=== PATIENT | male | born 1935 | race Caucasian/White ===

== ENCOUNTER → 2018-04-15 | Outpatient (CLI) | payer MEDICARE ==
[~2018-04-15] MED LIST: AMLO10TA6 PO; ASPI-1181 PO; CENTRUM PO; CLOP75TA14 PO; FENO134C PO; HYDR-2132 PO; LEVO200T5 PO; LOSA100T2 PO; LOVA40TA2 PO; METO100T7 PO; SUPER B COMPLEX PO; TRAM50TA4 PO
== END | disposition home or self-care (01) ==
LOC: CANPRECLI → SHCH 08:59
PROVIDERS: ATTEND Internal Medicine Cardiovascular Disease
DX: I35.8 Other nonrheumatic aortic valve disorders (principal); I10 Essential (primary) hypertension; I25.10 Atherosclerotic heart disease of native coronary artery without angina pectoris; I25.2 Old myocardial infarction; M19.90 Unspecified osteoarthritis, unspecified site; Z85.850 Personal history of malignant neoplasm of thyroid; Z72.89 Other problems related to lifestyle
CPT/HCPCS: 93306

== ENCOUNTER → 2018-04-18 | Outpatient (CLI) | payer MEDICARE | END | disposition home or self-care (01) | LOC: SHCH 10:40 | PROVIDERS: ATTEND Internal Medicine Cardiovascular Disease | DX: I65.23 Occlusion and stenosis of bilateral carotid arteries (principal); I25.10 Atherosclerotic heart disease of native coronary artery without angina pectoris | CPT/HCPCS: 93880 ==

== ENCOUNTER → 2018-04-25 | Outpatient (CLI) | payer MEDICARE ==
[~2018-04-25] MED LIST changes: +REGADENOSON 0.4 MG/5 ML PF SYG IVP ONE
== END | disposition home or self-care (01) ==
LOC: SHCH 07:55
PROVIDERS: ATTEND Internal Medicine Cardiovascular Disease
DX: I25.10 Atherosclerotic heart disease of native coronary artery without angina pectoris (principal); I10 Essential (primary) hypertension; I25.2 Old myocardial infarction; M19.90 Unspecified osteoarthritis, unspecified site; Z72.89 Other problems related to lifestyle
CPT/HCPCS: 78452; 93017; 96374; A9505; J2785

== ENCOUNTER 2019-11-18 14:34 | Emergency (ER) | payer MEDICARE ==
[~2019-11-18 14:34] MED LIST changes: +0.9% SODIUM CHLORIDE 500 ML IV BAG IV ONE; -AMLO10TA6 PO; +AMLO10TA7 PO; -ASPI-1181 PO; +ASPI-1443 PO; -REGADENOSON 0.4 MG/5 ML PF SYG IVP ONE
[2019-11-18] MEDS ORDERED: SODIUM CHLORIDE 0.9% 1000ML 1,000 ML IV ONE (15:24)
[2019-11-18 15:45] LABS: BASOPHILS % (AUTO) 0.3 % (0.0-5.0); EOSINOPHILS % (AUTO) 3.3 % (0.0-8.0); HEMATOCRIT 28.8 % (42-54); LYMPHOCYTES % (AUTO) 11.5 % (21.0-51.0); MEAN CORPUSCULAR HEMOGLOBIN 30.4 pg (27.0-33.0); MEAN CORPUSCULAR VOLUME 92.3 fL (79-99); MONOCYTES % (AUTO) 15.4 % (3.0-13.0); NEUTROPHILS % (AUTO) 69.2 % (40.0-77.0); PLATELET COUNT (AUTO) 255 K/uL (130-400); RED BLOOD CELL COUNT(AUTO) 3.12 MIL/uL (4.50-6.20)
[2019-11-18 15:57] LABS: INR 0.95 (0.85-1.15); PARTIAL THROMBOPLASTIN TIME 25.4 SEC (26.3-35.5); POTASSIUM 4.4 mmol/L (3.5-5.1); PROTHROMBIN TIME 10.3 SEC (9.6-11.6)
[2019-11-18 15:59] LABS: ALBUMIN 2.9 g/dL (3.5-5.0); BILIRUBIN,TOTAL 0.3 mg/dL (0.2-1.0); TOTAL PROTEIN, SERUM 6.6 g/dL (6.0-8.3)
[2019-11-18] MEDS ORDERED: IOHEXOL-350 50ML VIAL IV ONE (16:02)
[2019-11-18 16:19] LABS: B-TYPE NATRIURETIC PEPTIDE 81 pg/mL (0-100)
== END 2019-11-18 16:58 | disposition home or self-care (01) ==
LOC: EDH 14:34
DX: Z48.03 Encounter for change or removal of drains (principal); R53.1 Weakness; I10 Essential (primary) hypertension; E78.00 Pure hypercholesterolemia, unspecified; Z88.8 Allergy status to other drugs, medicaments and biological substances; Z85.850 Personal history of malignant neoplasm of thyroid; Z98.890 Other specified postprocedural states
CPT/HCPCS: 36415; 71045; 71260; 80053; 82150; 83690; 83880; 84484; 85025; 85610; 85730; 93005; 99285; J7040; Q9967; J7030